=== PATIENT | female | born 1955 | race Caucasian/White ===

== ENCOUNTER → 2019-04-15 | Outpatient (CLI) | payer OTHER ==
--- NOTE | 2019-04-15 13:16 | RAD ---
EXAM: Abdomen sonogram. HISTORY: Pain. TECHNIQUE: Sonographic imaging of the abdomen was performed. COMPARISON: None. FINDINGS: The liver is normal in size. No focal hepatic lesion is seen. There is a 1.3 cm gallstone and there is gallbladder sludge. The gallbladder wall is normal thickness. The common bile duct is normal in caliber. The kidneys and spleen are unremarkable. The pancreas is obscured due to bowel gas. The aorta is normal in caliber. The inferior vena cava is patent. There is a small amount of ascites in the right lower quadrant. The appendix is not seen. IMPRESSION: 1. Cholelithiasis and gallbladder sludge. There is no sonographic evidence of superimposed cholecystitis. 2. Minimal ascites within the right lower quadrant. 3. Obscured pancreas. Electronically signed by: Li Cao MD (04/15/2019 1:12 PM) [id number]
== END | disposition home or self-care (01) ==
LOC: US 09:53
PROVIDERS: ATTEND Family Medicine
DX: K80.20 Calculus of gallbladder without cholecystitis without obstruction (principal); R18.8 Other ascites
CPT/HCPCS: 76700